=== PATIENT | male | born 1975 | race Caucasian/White ===

== ENCOUNTER 2018-03-28 05:43 | Emergency (ER) | payer OTHER, SELFPAY ==
[2018-03-28] MEDS ORDERED: Nitroglycerin 0.4 MG TAB (25 Tab Bottle) ONE ×2 (06:00→07:00)
[2018-03-28 06:14] LABS: #Basophils 0.2 thou/uL (0.0-0.2); #Eosinphils 0.3 thou/uL (0.0-0.7); #Lymphocytes 3.1 thou/uL (1.20-3.40); #Neutrophils 3.6 thou/uL (1.40-6.50); %Basophils 2.1 % (0.0-1.0); %Eosinophils 3.7 % (0.0-10.0); %Neutrophils 44.2 % (42.0-75.0); Hemoglobin 15.8 g/dL (14.0-18.0); Mean Corpuscular HGB CONC 34.6 g/dL (32.0-36.0); Mean Corpuscular Hemoglobin 31.5 pg (27.0-31.0); Mean Corpuscular Volume 91.1 fL (78.0-98.0); Mean Platelet Volume 8.9 fL (7.4-10.4); Platelet Count 219 thou/uL (130-400); RBC Distribution Width 11.9 % (11.5-14.5); Red Blood Cell (RBC) Count 5.02 mill/uL (4.70-6.10); White Blood Cell (WBC) Count 8.1 thou/uL (4.8-10.8)
[2018-03-28 06:25] LABS: ALT (SGPT) 12 U/L (8-55); AST (SGOT) 24 U/L (5-34); Albumin 4.4 g/dL (3.5-5.0); Alkaline Phosphatase 78 U/L (40-150); Anion Gap 17 mmol/L (10-20); BUN (Urea Nitrogen) 13 mg/dL (8.9-20.6); Bilirubin, Total 0.4 mg/dL (0.2-1.2); CK (CPK) 71 U/L (30-200); Calc. Creatinine Clearance 0 mL/min (70-130); Calcium 9.4 mg/dL (7.8-10.44); Carbon Dioxide 23 mmol/L (22-29); Chloride 105 mmol/L (98-107); Estimated GFR-MDRD Greater than 90; Globulin 3.3 g/dL (2.4-3.5); Glucose 110 mg/dL (70-105); Lipase 24 U/L (8-78); Potassium 4.2 mmol/L (3.5-5.1); Protein, Total 7.7 g/dL (6.0-8.3); Sodium 141 mmol/L (136-145)
[2018-03-28 06:27] LABS: CKMB 0.7 ng/mL (0-6.6); Troponin I Less than 0.010 ng/mL (< 0.028)
--- NOTE | 2018-03-28 07:51 | RAD ---
PORTABLE CHEST: DATE: 03/28/18. FINDINGS: An AP portable film at 0537 is compared with a 05/06/16 study. The heart is normal in size. There is no congestive changes, pleural effusion, or focal pulmonary in filtrate. The mediastinum appears normal. IMPRESSION: No acute findings. POS: HOME
== END 2018-03-28 06:55 | disposition short-term general hospital (02) ==
LOC: BURERS 05:43
DX: R07.9 Chest pain, unspecified (principal); E78.00 Pure hypercholesterolemia, unspecified; I25.2 Old myocardial infarction; F17.210 Nicotine dependence, cigarettes, uncomplicated; Z79.82 Long term (current) use of aspirin
CPT/HCPCS: 71045; 80053; 82553; 83690; 84484; 85025; 93005

== ENCOUNTER 2018-04-03 20:03 | Emergency (ER) | payer SELFPAY ==
[2018-04-03] MEDS ORDERED: Nitroglycerin 0.4 MG TAB (25 Tab Bottle) ONE (20:12)
[2018-04-03] MEDS ORDERED: Enoxaparin Sodium 100 MG/ML SYRINGE ONE (20:12)
[2018-04-03 20:23] LABS: #Basophils 0.1 thou/uL (0.0-0.2); #Eosinphils 0.2 thou/uL (0.0-0.7); #Lymphocytes 3.2 thou/uL (1.20-3.40); #Monocytes 1.3 thou/uL (0.11-0.59); #Neutrophils 6.6 thou/uL (1.40-6.50); %Basophils 1.2 % (0.0-1.0); %Lymphocytes 28.2 % (21.0-51.0); %Monocytes 11.1 % (0.0-10.0); %Neutrophils 57.6 % (42.0-75.0); Hemoglobin 15.8 g/dL (14.0-18.0); Mean Corpuscular HGB CONC 35.2 g/dL (32.0-36.0); Mean Corpuscular Hemoglobin 31.1 pg (27.0-31.0); Mean Corpuscular Volume 88.5 fL (78.0-98.0); Mean Platelet Volume 9.7 fL (7.4-10.4); Platelet Count 270 thou/uL (130-400); RBC Distribution Width 11.2 % (11.5-14.5); Red Blood Cell (RBC) Count 5.07 mill/uL (4.70-6.10); White Blood Cell (WBC) Count 11.5 thou/uL (4.8-10.8)
[2018-04-03] MEDS ORDERED: Nitroglycerin 2% Ointment 1 INCH/1 GM Packet ONE (20:27)
[2018-04-03 20:36] LABS: ALT (SGPT) 23 U/L (8-55); AST (SGOT) 23 U/L (5-34); Albumin 4.6 g/dL (3.5-5.0); Alkaline Phosphatase 82 U/L (40-150); Anion Gap 15 mmol/L (10-20); BUN (Urea Nitrogen) 10 mg/dL (8.9-20.6); Bilirubin, Total Less than 0.2 mg/dL (0.2-1.2); Calc. Creatinine Clearance 0 mL/min (70-130); Carbon Dioxide 25 mmol/L (22-29); Chloride 100 mmol/L (98-107); Estimated GFR-MDRD Greater than 90; Globulin 3.4 g/dL (2.4-3.5); Glucose 99 mg/dL (70-105); Lipase 30 U/L (8-78); Potassium 4.2 mmol/L (3.5-5.1); Sodium 136 mmol/L (136-145)
[2018-04-03 20:37] LABS: CKMB 1.4 ng/mL (0-6.6); Troponin I 0.034 ng/mL (< 0.028)
--- NOTE | 2018-04-03 21:03 | RAD ---
AP PORTABLE CHEST: 04/03/2018 1953 HOURS COMPARISON: 03/28/2018 FINDINGS: There has been no adverse interval change. The heart is normal in size. There are no lobar infiltra mary or effusions. There is no congestive change. Some of the basilar lung markings are mildly promi nent, more so in the right base, but not substantially different than before. IMPRESSION: No acute changes. POS: HOME
[2018-04-03] MEDS ORDERED: Fentanyl 100 MCG/2 ML VIAL ONE (21:08)
== END 2018-04-03 22:15 | disposition short-term general hospital (02) ==
LOC: BURERS 20:03
DX: I24.9 Acute ischemic heart disease, unspecified (principal); I25.2 Old myocardial infarction; I25.10 Atherosclerotic heart disease of native coronary artery without angina pectoris; E78.00 Pure hypercholesterolemia, unspecified; Z87.891 Personal history of nicotine dependence; Z79.899 Other long term (current) drug therapy
CPT/HCPCS: 71045; 80053; 82553; 83690; 83880; 84484; 85025; 85379; 93005; 94760; 96361; 96372; 96374; J1650; J3010

== ENCOUNTER 2020-05-30 13:37 | Emergency (ER) | payer SELFPAY ==
[2020-05-30] MEDS ORDERED: Metoprolol Tartrate 5 MG/5 ML VIAL ONE (13:53)
[2020-05-30] MEDS ORDERED: Nitroglycerin 0.4 MG TAB 1 EACH ONE (13:53)
[2020-05-30 13:56] LABS: #Basophils 0.1 thou/uL (0.0-0.2); #Lymphocytes 1.2 thou/uL (1.20-3.40); #Monocytes 0.5 thou/uL (0.11-0.59); #Neutrophils 9.8 thou/uL (1.40-6.50); %Eosinophils 0.1 % (0.0-10.0); %Lymphocytes 10.4 % (21.0-51.0); %Monocytes 4.4 % (0.0-10.0); %Neutrophils 84.1 % (42.0-75.0); Hemoglobin 15.2 g/dL (14.0-18.0); Mean Corpuscular HGB CONC 32.3 g/dL (32.0-36.0); Mean Corpuscular Hemoglobin 31.3 pg (27.0-31.0); Mean Corpuscular Volume 96.7 fL (78.0-98.0); Mean Platelet Volume 7.7 fL (7.4-10.4); Platelet Count 296 thou/uL (130-400); RBC Distribution Width 12.3 % (11.5-14.5); Red Blood Cell (RBC) Count 4.86 mill/uL (4.70-6.10); White Blood Cell (WBC) Count 11.7 thou/uL (4.8-10.8)
[2020-05-30 14:01] LABS: INR-International Normal Ratio 0.9; PTT 26.4 sec (22.9-36.1); Prothrombin Time 12.6 sec (12.0-14.7)
[2020-05-30 14:25] LABS: Carbon Dioxide 17 mmol/L (22-29); Chloride 92 mmol/L (98-107); Potassium 4.2 mmol/L (3.5-5.1); Sodium 133 mmol/L (136-145)
[2020-05-30 14:26] LABS: Albumin 4.7 g/dL (3.5-5.0); Anion Gap 28 mmol/L (10-20); BUN (Urea Nitrogen) 14 mg/dL (8.9-20.6); Bilirubin, Total 0.9 mg/dL (0.2-1.2); Calc. Creatinine Clearance 0 mL/min (70-130); Calcium 9.3 mg/dL (7.8-10.44); Estimated GFR-MDRD 83; Globulin 3.7 g/dL (2.4-3.5); Glucose 81 mg/dL (70-105); Protein, Total 8.4 g/dL (6.0-8.3)
[2020-05-30 14:27] LABS: ALT (SGPT) 37 U/L (8-55); AST (SGOT) 59 U/L (5-34); Alkaline Phosphatase 92 U/L (40-110)
[2020-05-30] MEDS ORDERED: Enoxaparin Sodium 100 MG/ML SYRINGE ONE (14:34)
[2020-05-30] MEDS ORDERED: Morphine 4 MG/ML VIAL ONE (14:34)
[2020-05-30 14:41] LABS: CKMB 9.3 ng/mL (0-6.6)
--- NOTE | 2020-05-30 16:30 | RAD ---
PORTABLE CHEST: Date: 05/30/2020 An AP portable film at 1408 hours is compared with the prior study of 04/03/2018. The heart seems slightly larger today than it was before. It is now borderline in size. There is no p ulmonary edema. The vessels are perhaps a little more prominent than previously, but not by much. The re are no focal pulmonary infiltrates of concern. The mediastinum appears normal. IMPRESSION: Borderline heart size which appears slightly larger than the prior film. POS: HOME
== END 2020-05-30 14:55 | disposition short-term general hospital (02) ==
LOC: BURERS 13:37
DX: I21.4 Non-ST elevation (NSTEMI) myocardial infarction (principal); I25.2 Old myocardial infarction; E78.5 Hyperlipidemia, unspecified; I10 Essential (primary) hypertension; F17.210 Nicotine dependence, cigarettes, uncomplicated; Z79.899 Other long term (current) drug therapy
CPT/HCPCS: 71045; 80053; 82553; 83880; 84484; 85025; 85610; 85730; 93005; 96372; 96374; 96375; J1650; J2270

== ENCOUNTER 2020-07-12 22:18 | Emergency (ER) | payer SELFPAY | END 2020-07-12 23:15 | disposition left against medical advice (07) | LOC: BURERS 22:18 | DX: Z53.21 Procedure and treatment not carried out due to patient leaving prior to being seen by health care provider (principal) ==

== ENCOUNTER 2022-02-28 12:17 | Emergency (ER) | payer SELFPAY ==
[2022-02-28] MEDS ORDERED: Aspirin Chewable 81 MG TAB ONE (12:22)
[2022-02-28] MEDS ORDERED: Nitroglycerin 0.4 MG TAB 1 EACH ONE (12:23)
[2022-02-28] MEDS ORDERED: Morphine 4 MG/ML VIAL ONE (12:38)
[2022-02-28 12:48] LABS: #Basophils 0.1 thou/uL (0.0-0.2); #Lymphocytes 2.7 thou/uL (1.20-3.40); #Neutrophils 6.3 thou/uL (1.40-6.50); %Basophils 1.1 % (0.0-1.0); %Eosinophils 0.2 % (0.0-10.0); %Lymphocytes 26.2 % (21.0-51.0); %Neutrophils 62.5 % (42.0-75.0); Hemoglobin 15.2 g/dL (14.0-18.0); Mean Corpuscular HGB CONC 32.4 g/dL (32.0-36.0); Mean Corpuscular Hemoglobin 29.1 pg (27.0-31.0); Mean Corpuscular Volume 89.9 fL (78.0-98.0); Mean Platelet Volume 7.9 fL (7.4-10.4); Platelet Count 298 thou/uL (130-400); RBC Distribution Width 12.1 % (11.5-14.5); Red Blood Cell (RBC) Count 5.24 mill/uL (4.70-6.10); White Blood Cell (WBC) Count 10.1 thou/uL (4.8-10.8)
[2022-02-28 13:01] LABS: ALT (SGPT) 19 U/L (8-55); AST (SGOT) 18 U/L (5-34); Albumin 4.4 g/dL (3.5-5.0); Alkaline Phosphatase 79 U/L (40-110); Anion Gap 16 mmol/L (10-20); BUN (Urea Nitrogen) 10 mg/dL (8.9-20.6); Bilirubin, Total 0.5 mg/dL (0.2-1.2); Calc. Creatinine Clearance 0 mL/min (70-130); Calcium 9.1 mg/dL (7.8-10.44); Carbon Dioxide 23 mmol/L (22-29); Chloride 104 mmol/L (98-107); Estimated GFR 113; Globulin 3.4 g/dL (2.4-3.5); Glucose 113 mg/dL (70-105); Lipase 15 U/L (8-78); Potassium 3.8 mmol/L (3.5-5.1); Protein, Total 7.8 g/dL (6.0-8.3); Sodium 139 mmol/L (136-145)
[2022-02-28] MEDS ORDERED: Fentanyl 100 MCG/2 ML VIAL ONE (14:30)
== END 2022-02-28 14:55 | disposition short-term general hospital (02) ==
LOC: BURERS 12:17
DX: R07.9 Chest pain, unspecified (principal); R00.0 Tachycardia, unspecified; R06.02 Shortness of breath; I25.2 Old myocardial infarction; E78.5 Hyperlipidemia, unspecified; I10 Essential (primary) hypertension; F17.210 Nicotine dependence, cigarettes, uncomplicated; Z85.118 Personal history of other malignant neoplasm of bronchus and lung; Z85.05 Personal history of malignant neoplasm of liver; Z79.899 Other long term (current) drug therapy
CPT/HCPCS: 71045; 80053; 83690; 83880; 84484; 85025; 85379; 93005; 96361; 96374; 96375; J2270; J3010

== ENCOUNTER 2022-06-17 18:55 | Emergency (ER) | payer SELFPAY ==
[2022-06-17] MEDS ORDERED: Aspirin Chewable 81 MG TAB ONE (19:19)
[2022-06-17 19:25] LABS: #Basophils 0.1 thou/uL (0.0-0.2); #Eosinphils 0.1 thou/uL (0.0-0.7); #Lymphocytes 3.6 thou/uL (1.20-3.40); #Monocytes 0.7 thou/uL (0.11-0.59); #Neutrophils 3.9 thou/uL (1.40-6.50); %Basophils 1.4 % (0.0-1.0); %Eosinophils 1.6 % (0.0-10.0); %Lymphocytes 42.3 % (21.0-51.0); %Monocytes 8.6 % (0.0-10.0); %Neutrophils 46.2 % (42.0-75.0); Hemoglobin 14.9 g/dL (14.0-18.0); Mean Corpuscular HGB CONC 34.8 g/dL (32.0-36.0); Mean Corpuscular Hemoglobin 31.4 pg (27.0-31.0); Mean Corpuscular Volume 90.2 fl (78.0-98.0); Mean Platelet Volume 8.7 fL (7.4-10.4); Platelet Count 186 10x3/uL (130-400); RBC Distribution Width 11.9 % (11.5-14.5); Red Blood Cell (RBC) Count 4.73 mill/uL (4.70-6.10); White Blood Cell (WBC) Count 8.4 10x3/uL (4.8-10.8)
[2022-06-17 19:45] LABS: ALT (SGPT) 17 U/L (8-55); AST (SGOT) 23 U/L (5-34); Albumin 4.3 g/dL (3.5-5.0); Alkaline Phosphatase 98 U/L (40-110); Anion Gap 15 mmol/L (10-20); BUN (Urea Nitrogen) 8 mg/dL (8.9-20.6); Bilirubin, Total 0.4 mg/dL (0.2-1.2); CK (CPK) 87 U/L (30-200); Calc. Creatinine Clearance 0 mL/min (70-130); Calcium 8.8 mg/dL (7.8-10.44); Carbon Dioxide 26 mmol/L (22-29); Chloride 105 mmol/L (98-107); Estimated GFR 112; Glucose 100 mg/dL (70-105); Lipase 47 U/L (8-78); Potassium 3.8 mmol/L (3.5-5.1); Protein, Total 7.3 g/dL (6.0-8.3); Sodium 142 mmol/L (136-145)
== END 2022-06-17 20:05 | disposition left against medical advice (07) ==
LOC: BURERS 18:55
DX: R07.9 Chest pain, unspecified (principal); E78.5 Hyperlipidemia, unspecified; I10 Essential (primary) hypertension; F17.210 Nicotine dependence, cigarettes, uncomplicated
CPT/HCPCS: 71045; 80053; 82550; 83690; 84484; 85025; 93005